=== PATIENT | male | born 1955 | race Caucasian/White ===

== ENCOUNTER 2019-03-20 07:19 | Day surgery (SDC) | payer OTHER ==
[2019-03-20] MEDS ORDERED: PROPOFOL 40 ML (08:47)
[2019-03-20] MEDS ORDERED: LIDOCAINE 100 MG SYRINGE (08:47)
[2019-03-20] MEDS ORDERED: LABETALOL HCL 20MG INJ IV (09:00)
[2019-03-20] MEDS ORDERED: hydrALAzine 20 MG INJ IV (09:00)
== END 2019-03-20 15:21 | disposition home or self-care (01) ==
LOC: GIL 07:19
DX: K92.1 Melena (principal); D12.3 Benign neoplasm of transverse colon; K57.30 Diverticulosis of large intestine without perforation or abscess without bleeding; K64.8 Other hemorrhoids; I10 Essential (primary) hypertension; E11.9 Type 2 diabetes mellitus without complications; Z79.82 Long term (current) use of aspirin
CPT/HCPCS: 45380; 82962; 88305